=== PATIENT | male | born 1950 | race African-American/Black ===

== ENCOUNTER 2018-07-12 19:41 | Emergency (ER) | payer OTHER ==
[~2018-07-12] VITALS: Ht 190.5 cm; Wt 113.4 kg
[2018-07-12 20:54] LABS: HEMATOCRIT 37.3 % (42.0-52.0); HEMOGLOBIN 12.3 gm/dL (14.0-18.0); MCH 28.5 pg (26.0-34.0); MCV 86.4 fL (80.0-100.0); RBC 4.32 mil/uL (4.50-6.00); RDW 15.2 % (10.5-14.5); WBC 8.2 thou/uL (4.0-11.0)
[2018-07-12 21:02] LABS: ANION GAP 12 mmol/L (7-16); BUN 16 mg/dL (7-18); CALCIUM 8.6 mg/dL (8.5-10.1); CHLORIDE 102 mmol/L (98-107); CO2 24 mmol/L (21-32); CREATININE 0.9 mg/dL (0.7-1.3); GLUCOSE 92 mg/dL (74-106); POTASSIUM 3.6 mmol/L (3.5-5.1); SODIUM 138 mmol/L (136-145)
[2018-07-12 21:11] LABS: ALBUMIN 3.4 g/dL (3.4-5.0); SGOT 16 U/L (15-37); SGPT 28 U/L (30-65); TOTAL BILIRUBIN 0.3 mg/dL (<0.1-1.0); TOTAL PROTEIN 7.7 g/dL (6.4-8.2); TROPONIN-I <0.06 ng/mL (<0.06)
[2018-07-12] MEDS ORDERED: NAPROSYN500 MG PO (21:49)
[2018-07-12] MEDS ORDERED: HYDROCODONE-AP1 EAC6 PO (21:49)
[2018-07-12] MEDS ORDERED: NORVASC5 MG PO (21:49)
[2018-07-12 22:21] VITALS: BP 198/80
--- NOTE | 2018-07-13 17:09 | EKG ---
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: Macario : 1950 Requested By: Marisol Alcantara Order Number: [id number] MD: Reagan Cruz Measurements Intervals Leroy Rate: 79 P: 46 SC: 167 QRS: -23 QRSD: 100 T: 9 QT: 425 QTc: 488 Interpretive Statements Sinus rhythm Left ventricular hypertrophy Borderline prolonged QT interval No previous ECG available for comparison Electronically Signed On 07-13-2018 17:08:59 CDT by Reagan Cruz [email or web address] ��������������������������������������������� <ELECTRONICALLY SIGNED> ���������������������������������������� By: Reagan Cruz MD, [facility] ��������������������������������������������� 07/13/18 1708 1945 [birth year] Reagan Cruz MD, FACC /EPI
== END 2018-07-12 22:21 | disposition home or self-care (01) ==
LOC: ER 19:41
PROVIDERS: Physician Assistant
DX: S46.812A Strain of other muscles, fascia and tendons at shoulder and upper arm level, left arm, initial encounter (principal); I10 Essential (primary) hypertension; F17.210 Nicotine dependence, cigarettes, uncomplicated; X50.1XXA Overexertion from prolonged static or awkward postures, initial encounter; Y92.89 Other specified places as the place of occurrence of the external cause; Y93.89 Activity, other specified; Y99.8 Other external cause status